=== PATIENT | female | born 1955 | race Caucasian/White ===

== ENCOUNTER 2022-03-31 15:51 | Inpatient (IN) ==
[2022-03-31 17:49] LABS: Bacteria,Urine Few per hpf (None-Few); Bilirubin,Urine Negative (Negative); Blood,Urine Moderate (Negative); Clarity,Urine Turbid (Clear); Color,Urine Yellow (Yellow); Glucose,Urine (UA) Normal (Normal); Ketones,Urine Negative (Negative); Leukocyte Esterase,Urine Negative (Negative); Mucus,Urine Few per lpf (None-Few); Nitrite,Urine Negative (Negative); Protein,Urine >=300 mg/dL (Neg-Trace); RBC,Urine 0-3 per hpf (0-3); Squamous Epithelial Cell,Urine Few per hpf (None-Few); WBC,Urine 0-3 per hpf (0-3)
[2022-03-31 18:23] LABS: Influenza A PCR Negative (Negative); Influenza B PCR Negative (Negative); Resp. Syncytial Virus PCR Negative (Negative)
[2022-03-31 18:24] LABS: Albumin 4.2 g/dL (3.5-5.7); Albumin/Globulin Ratio 1.3 (1.1-2.2); Bilirubin,Total 1.3 mg/dL (0.3-1.0); Calcium 13.3 mg/dL (8.6-10.3); Globulin 3.2 g/dL (2.4-3.5); Magnesium 2.1 mg/dL (1.6-2.6); Potassium 4.7 mEq/L (3.5-5.1); Total Protein 7.4 g/dL (6.4-8.9)
[2022-03-31 18:30] LABS: SARS-CoV-2 by PCR (In House) Negative (Negative)
[2022-03-31] MEDS ORDERED: Ringers Solution, Lactated 1,000 ML IVC ONE (18:30)
[2022-03-31 19:15] LABS: Basophils % 0.2 %; Hematocrit 32.8 % (35.3-44.9); Hemoglobin 10.8 g/dL (11.5-15.4); Immature Granulocytes % 1.2 % (0-4); Lymphocytes # 0.5 K/mcL (0.6-4.6); Lymphocytes % 2.1 %; Mean Corpuscular HGB Conc 32.9 g/dL (31.6-35.5); Mean Corpuscular Hemoglobin 40.6 pg (28.0-33.3); Mean Corpuscular Volume 123.3 fL (83.0-100.0); Monocytes # 1.9 K/mcL (0.0-1.3); Monocytes % 8.6 %; Nucleated Red Blood Cells 0.6 /100 WBC (0); Platelet Count 122 K/mcL (140-400); Red Blood Count 2.66 M/mcL (3.82-4.97); Red Cell Distribution Width 17.1 % (11.5-14.5); Segmented Neutrophils % 87.9 %; White Blood Count 21.6 K/mcL (4.3-11.1)
[2022-03-31] MEDS ORDERED: Iopamidol - 370 500 ML MLS IVP ONE (19:29)
[2022-03-31 19:44] LABS: Anisocytosis 1+ (Not Present); Macrocytosis Present (Not Present); Platelet Estimate Decreased (Normal); Polychromasia 1+ (Not Present)
[2022-03-31] MEDS ORDERED: Azithromycin 500 MG in 0.9 % Sodium Chloride 250 ML IVPB ONE (20:19)
[2022-03-31] MEDS ORDERED: cefTRIAXone 2,000 MG in 0.9 % Sodium Chloride 20 ML IVP ONE (20:19)
[2022-03-31] MEDS ORDERED: Ringers Solution, Lactated 500 ML IVC ONE (20:24)
[2022-03-31] MEDS ORDERED: Ondansetron 4 MG/2 ML VIAL IVP PRN (23:08)
[2022-03-31] MEDS ORDERED: Acetaminophen 325 MG TABLET PO PRN (23:08)
[2022-03-31] MEDS ORDERED: Naloxone 0.4 MG/ML INJ IVP PRN (23:08)
[2022-03-31] MEDS ORDERED: 0.9 % Sodium Chloride 1,000 ML IVC SCH (23:15)
[2022-04-01 01:12] LABS: Hematocrit 30.9 % (35.3-44.9); Hemoglobin 10.2 g/dL (11.5-15.4); Mean Corpuscular Hemoglobin 40.8 pg (28.0-33.3); Mean Corpuscular Volume 123.6 fL (83.0-100.0); Mean Platelet Volume 9.9 fL (9.4-12.4); Platelet Count 102 K/mcL (140-400); White Blood Count 20.3 K/mcL (4.3-11.1)
[2022-04-01 01:31] LABS: BUN/Creatinine Ratio 35 (6-26); Blood Urea Nitrogen 33 mg/dL (8-23); Calcium 11.3 mg/dL (8.6-10.3); Carbon Dioxide 26 mEq/L (23-29); Chloride 104 mEq/L (98-107); Glucose 100 mg/dL (70-105); Osmolality,Calculated 293 (280-300); Potassium 4.1 mEq/L (3.5-5.1); Sodium 138 mEq/L (136-145); eGFR For African Americans > 60 (> 60); eGFR For Non-African Americans 59 (> 60)
[2022-04-01] MEDS: *HR* Heparin 5,000 UNIT/ML VIAL SQ SCH ×2 (06:33→14:47)
[2022-04-01 09:17] LABS: Folate 4.8 ng/mL (3.0-16.0)
[2022-04-01] MEDS: Levalbuterol Neb 1.25 MG/3 ML IH SCH ×4 (09:31→22:11)
[2022-04-01] MEDS: Piperacillin/Tazobactam 3.375 GM in 0.9 % Sodium Chloride Mini Bag 100 ML IVPB SCH ×2 (09:47→16:57)
[2022-04-01] MEDS: 0.9 % Sodium Chloride 1,000 ML IVC SCH (11:15)
[2022-04-01] MEDS ORDERED: cefTRIAXone 1,000 MG in 0.9 % Sodium Chloride 10 ML IVP SCH (20:00)
[2022-04-01] MEDS ORDERED: Azithromycin 500 MG in 0.9 % Sodium Chloride 250 ML IVPB SCH (20:00)
[2022-04-01] MEDS: Apixaban 5 MG TABLET PO SCH (20:15)
[2022-04-02] MEDS: Piperacillin/Tazobactam 3.375 GM in 0.9 % Sodium Chloride Mini Bag 100 ML IVPB SCH ×3 (00:31→17:03)
[2022-04-02] MEDS: Levalbuterol Neb 1.25 MG/3 ML IH SCH ×4 (03:53→22:50)
[2022-04-02 05:22] LABS: Basophils % 0.2 %; Eosinophils % 0.2 %; Hemoglobin 8.8 g/dL (11.5-15.4); Lymphocytes % 4.8 %; Nucleated Red Blood Cells 0.4 /100 WBC (0); Red Cell Distribution Width 17.2 % (11.5-14.5)
[2022-04-02 05:25] LABS: Hematocrit 27.2 % (35.3-44.9); Immature Granulocytes % 2.1 % (0-4); Immature Platelets 3.9 % (1.1-6.1); Lymphocytes # 0.5 K/mcL (0.6-4.6); Mean Corpuscular HGB Conc 32.4 g/dL (31.6-35.5); Mean Corpuscular Volume 123.6 fL (83.0-100.0); Mean Platelet Volume 10.2 fL (9.4-12.4); Monocytes # 0.9 K/mcL (0.0-1.3); Monocytes % 8.5 %; Platelet Count 113 K/mcL (140-400); Segmented Neutrophils % 84.2 %; White Blood Count 11.1 K/mcL (4.3-11.1)
[2022-04-02 05:30] LABS: Neutrophils # 9.4 K/mcL (1.6-8.9)
[2022-04-02 05:41] LABS: BUN/Creatinine Ratio 25 (6-26); Blood Urea Nitrogen 20 mg/dL (8-23); Calcium 9.3 mg/dL (8.6-10.3); Carbon Dioxide 26 mEq/L (23-29); Chloride 109 mEq/L (98-107); Glucose 83 mg/dL (70-105); Magnesium 1.8 mg/dL (1.6-2.6); Osmolality,Calculated 298 (280-300); Phosphorous 2.7 mg/dL (2.7-4.5); Potassium 3.3 mEq/L (3.5-5.1); Sodium 143 mEq/L (136-145); eGFR For African Americans > 60 (> 60); eGFR For Non-African Americans > 60 (> 60)
[2022-04-02 05:46] LABS: Anisocytosis 1+ (Not Present); Macrocytosis Present (Not Present); Platelet Estimate Normal (Normal); Polychromasia 1+ (Not Present)
[2022-04-02] MEDS: Apixaban 5 MG TABLET PO SCH ×2 (08:28→21:33)
[2022-04-02] MEDS: 0.9 % Sodium Chloride 1,000 ML IVC SCH (20:50)
[2022-04-03] MEDS: Piperacillin/Tazobactam 3.375 GM in 0.9 % Sodium Chloride Mini Bag 100 ML IVPB SCH ×3 (00:36→15:47)
[2022-04-03] MEDS: Levalbuterol Neb 1.25 MG/3 ML IH SCH ×4 (03:28→22:17)
[2022-04-03 07:57] LABS: BUN/Creatinine Ratio 20 (6-26); Blood Urea Nitrogen 16 mg/dL (8-23); Calcium 8.9 mg/dL (8.6-10.3); Carbon Dioxide 27 mEq/L (23-29); Chloride 111 mEq/L (98-107); Glucose 124 mg/dL (70-105); Magnesium 1.7 mg/dL (1.6-2.6); Osmolality,Calculated 299 (280-300); Phosphorous 1.7 mg/dL (2.7-4.5); Potassium 3.5 mEq/L (3.5-5.1); Sodium 143 mEq/L (136-145); Vancomycin,Trough 7 mcg/mL (5-10); eGFR For African Americans > 60 (> 60); eGFR For Non-African Americans > 60 (> 60)
[2022-04-03 08:09] LABS: Basophils % 0.2 %; Eosinophils # 0.1 K/mcL (0.0-0.6); Eosinophils % 0.5 %; Hematocrit 28.9 % (35.3-44.9); Hemoglobin 9.1 g/dL (11.5-15.4); Immature Granulocytes % 2.4 % (0-4); Lymphocytes # 0.6 K/mcL (0.6-4.6); Lymphocytes % 6.1 %; Mean Corpuscular HGB Conc 31.5 g/dL (31.6-35.5); Mean Corpuscular Hemoglobin 39.9 pg (28.0-33.3); Mean Corpuscular Volume 126.8 fL (83.0-100.0); Mean Platelet Volume 10.3 fL (9.4-12.4); Monocytes # 0.8 K/mcL (0.0-1.3); Monocytes % 8.3 %; Neutrophils # 7.8 K/mcL (1.6-8.9); Nucleated Red Blood Cells 0.2 /100 WBC (0); Platelet Count 114 K/mcL (140-400); Red Blood Count 2.28 M/mcL (3.82-4.97); Red Cell Distribution Width 17.5 % (11.5-14.5); Segmented Neutrophils % 82.5 %; White Blood Count 9.5 K/mcL (4.3-11.1)
[2022-04-03 08:14] LABS: Anisocytosis 1+ (Not Present); Macrocytosis Present (Not Present)
[2022-04-03] MEDS: Apixaban 5 MG TABLET PO SCH ×2 (08:20→21:56)
[2022-04-03] MEDS ORDERED: Vancomycin 1,250 MG/262.5 ML IV.SOLN IVPB SCH (09:00)
[2022-04-03] MEDS: Nicotine 21 MG PATCH.TD24 TD SCH (21:56)
[2022-04-03] MEDS ORDERED: Melatonin 3 MG TABLET PO PRN (23:59)
[2022-04-04] MEDS: Piperacillin/Tazobactam 3.375 GM in 0.9 % Sodium Chloride Mini Bag 100 ML IVPB SCH ×2 (00:35→07:47)
[2022-04-04] MEDS: Levalbuterol Neb 1.25 MG/3 ML IH SCH ×3 (03:28→15:53)
[2022-04-04] MEDS: Apixaban 5 MG TABLET PO SCH (07:48)
[2022-04-04] MEDS: Nicotine 21 MG PATCH.TD24 TD SCH (07:52)
[2022-04-04 08:03] LABS: Basophils % 0.2 %; Eosinophils # 0.1 K/mcL (0.0-0.6); Eosinophils % 0.8 %; Hemoglobin 9.6 g/dL (11.5-15.4); Immature Granulocytes % 1.4 % (0-4); Lymphocytes # 0.7 K/mcL (0.6-4.6); Lymphocytes % 5.2 %; Mean Corpuscular Hemoglobin 40.2 pg (28.0-33.3); Mean Corpuscular Volume 125.5 fL (83.0-100.0); Mean Platelet Volume 10.3 fL (9.4-12.4); Monocytes # 0.9 K/mcL (0.0-1.3); Monocytes % 6.6 %; Neutrophils # 11.2 K/mcL (1.6-8.9); Platelet Count 143 K/mcL (140-400); Red Blood Count 2.39 M/mcL (3.82-4.97); Red Cell Distribution Width 17.3 % (11.5-14.5); Segmented Neutrophils % 85.8 %; White Blood Count 13.1 K/mcL (4.3-11.1)
[2022-04-04 08:18] LABS: BUN/Creatinine Ratio 14 (6-26); Blood Urea Nitrogen 11 mg/dL (8-23); Calcium 8.8 mg/dL (8.6-10.3); Carbon Dioxide 27 mEq/L (23-29); Chloride 111 mEq/L (98-107); Glucose 92 mg/dL (70-105); Magnesium 1.6 mg/dL (1.6-2.6); Osmolality,Calculated 295 (280-300); Phosphorous 2.4 mg/dL (2.7-4.5); Potassium 3.7 mEq/L (3.5-5.1); Sodium 143 mEq/L (136-145); eGFR For African Americans > 60 (> 60); eGFR For Non-African Americans > 60 (> 60)
[2022-04-04 08:29] LABS: Macrocytosis Present (Not Present); Platelet Estimate Normal (Normal)
[2022-04-04 15:53] LABS: Influenza A PCR Negative (Negative); Influenza B PCR Negative (Negative); Resp. Syncytial Virus PCR Negative (Negative)
[2022-04-04 15:56] VITALS: O2SAT 95
[2022-04-04 16:30] LABS: SARS-CoV-2 by PCR (In House) Negative (Negative)
[2022-04-04 17:24] VITALS: BP 124/74; PULSE 92; TEMP 97.6
[2022-04-05] MEDS ORDERED: levoFLOXacin 750 MG TABLET PO SCH ×2 (09:00)
[2022-04-09] MEDS ORDERED: Apixaban 5 MG TABLET PO SCH (21:00)
== END 2022-04-04 18:21 | disposition other institution (70) | DRG 871 ==
LOC: 3ANU 15:51 → EMEROOARM 15:51 → SUATTDRO 20:47 → 3ANU 21:30
PROVIDERS: ADMIT Internal Medicine; ATTEND Internal Medicine